=== PATIENT | male | born 1955 | race Caucasian/White ===

== ENCOUNTER 2019-12-31 01:35 | Emergency (ER) | payer OTHER ==
--- NOTE | 2019-12-31 02:36 | ED ---
Abdominal Pain/Male - HPI Summary HPI Summary: 64 year old M arriving via private car complains of constant, upper abdominal pain described as "pushing" that started at 1700 yesterday 12/30/2019. He states the pain radiates down his abdomen. Patient denies nausea/vomiting, fever. Last normal bowel movement hours ago. He states he ate 2 slices of pizza for dinner last night. He has been eating well recently but not hydrating well. Symptoms rated 6/10 at its best and 9/10 at its worst in severity. Symptoms aggravated by nothing. Symptoms alleviated by lying on his left side. Took Tums and Zantac at 2300 yesterday 12/30 with no relief. Patient has never had symptoms. Hx nonischemic cardiomyopathy. Medications reviewed. On Lasix, Entresto, carvadilol , aspirin 81 mg, atorvastatin, vitamin D3. No abdominal surgical hx. He states he has not had ETOH in 3 months. No recreational drug or tobacco use. - History of Current Complaint Chief Complaint: EDAbdPain Stated Complaint: ABD PAIN PER PT Time Seen by Provider: 12/31/19 02:21 Hx Obtained From: Patient Onset/Duration: Lasting Hours - 1700 yesterday 12/30/2019, Still Present Timing: Constant Severity Currently: Severe Pain Intensity: 9 Pain Scale Used: 0-10 Numeric Location: Discrete At: RUQ, Discrete At: LUQ Radiates: Yes Radiates to: Other - lower abdomen Aggravating Factor(s): Nothing Alleviating Factor(s): Other: - lying on left side Associated Signs And Symptoms: Positive: Negative - nausea/vomiting, fever, decreased appetite, Other - dehydration - Allergies/Home Medications Allergies/Adverse Reactions: Allergies Allergy/AdvReac Type Severity Reaction Status Date / Time No Known Allergies Allergy Verified 12/31/19 01:37 Home Medications: Home Medications Aspirin [Ecotrin Low Strength] 81 mg PO DAILY 12/31/19 [History Confirmed ] Atorvastatin* [Lipitor*] 40 mg PO 2100 12/31/19 [History Confirmed 12/31/19] Carvedilol [Coreg] 12.5 mg PO BID 12/31/19 [History Confirmed 12/31/19] Oxycodone HCl 5 mg PO SEE INSTRUCTIONS 12/31/19 [History Confirmed 12/31/19] raNITIdine HCl [Zantac 75] 75 mg PO BID 12/31/19 [History Confirmed 12/31/19] PMH/Surg Hx/FS Hx/Imm Hx Cardiovascular History: Reports: Other Cardiovascular Problems/Disorders - nonischemic cardiomyopathy Sensory History: Denies: Hx Legally Blind Opthamlomology History: Denies: Hx Legally Blind - Surgical History Surgery Procedure, Year, and Place: hip surgery. rotator cuff. ACL Infectious Disease History: No Infectious Disease History: Denies: Traveled Outside the [place] in Last 30 Days - Family History Known Family History: Positive: Other - NEG: Cancer Negative: Cardiac Disease, Hypertension, Diabetes - Social History Alcohol Use: None Alcohol Amount: not since September 2019 Hx Substance Use: No Substance Use Type: Reports: None Review of Systems - ROS Summary Review of Systems Summary: Home Medications Medication Instructions Recorded Confirmed Type Aspirin [Ecotrin Low Strength] 81 mg PO DAILY 12/31/19 12/31/19 History Atorvastatin* [Lipitor*] 40 mg PO 2100 12/31/19 12/31/19 History Carvedilol [Coreg] 12.5 mg PO BID 12/31/19 12/31/19 History Oxycodone HCl 5 mg PO SEE INSTRUCTIONS 12/31/19 12/31/19 History raNITIdine HCl [Zantac 75] 75 mg PO BID 12/31/19 12/31/19 History Negative: Fever Gastrointestinal: Negative - decreased appetite Positive: Abdominal Pain, Other - dehydration. Negative: Vomiting, Nausea All Other Systems Reviewed And Are Negative: Yes Physical Exam - Summary Physical Exam Summary: General: Morbidly obese MALE who is not in any obvious distress. HEENT: Normocephalic, Atraumatic. Eyes: Conjuctiva normal, PERRL. Oropharynx: Clear, mucous membranes moist, (-) exudates. Neck: Soft, FROM, (-) lymphadenopathy, (-) thyromegaly, (-) JVD. Cardiovascular: Normal sinus rhythm, (-) murmur. Lungs: Clear to auscultation bilaterally (-) wheezes, (-) rales, (-) rhonchi. Abdomen: Soft, mild tenderness in LUQ and epigastric areas, non-distended, (-) organomegaly, normal bowel sounds. Back: (-) CVA tenderness Extremities: +1 pitting edema lower extremities Skin: Warm, dry, (-) rash. Neuro: Alert and oriented x3, moves all extremities equally. No ataxia. No gait disturbance. No sensory deficit. Normal strength, normal sensation. Psychiatric: Mood normal, affect normal. Triage Information Reviewed: Yes Vital Signs On Initial Exam: Initial Vitals Temp Pulse Resp BP Pulse Ox 98.0 F 70 18 151/101 98 12/31/19 01:38 12/31/19 01:38 12/31/19 01:38 12/31/19 01:38 12/31/19 01:38 Vital Signs Reviewed: Yes Procedures - Sedation Patient Received Moderate/Deep Sedation with Procedure: No Diagnostics - Vital Signs Vital Signs Temp Pulse Resp BP Pulse Ox 12/31/19 01:38 98.0 F 70 18 151/101 98 - Laboratory Result Diagrams: 12/31/19 02:15 12/31/19 02:15 Lab Statement: Any lab studies that have been ordered have been reviewed, and results considered in the medical decision making process. - CT ABDOMEN/PELVIS CT Interpretation Completed By: Radiologist - IMPRESSION: 1. The gallbladder is distended. No calcified gallstone. Abnormal pericholecystic fluid collection. This is a suggestive of acute cholecystitis. Suggest ultrasound examination to differentiate between calculus and acalculus cholecystitis. No significant distension of the intrahepatic or extrahepatic biliary system. 2. Colonic diverticulosis without evidence of acute diverticulitis. ED physician has reviewed this imaging report. Abdominal Pain Male Course/Dx - Course Course Of Treatment: 64-year-old male presents with abdominal pain. He states he is recently had a left hip replacement. He describes abdominal pain that goes across his entire upper abdomen. Worst in the epigastric area. Describes it as a pressure or pushing. He tried Tums without relief. No fevers. No vomiting. No diarrhea. and physical exam he is a morbidly obese male. He appears in mild discomfort. He has moderate tenderness in the epigastric area. Mild tenderness in the right upper quadrant and left upper quadrant areas. In the ED, patient was given normal saline fluids, Protonix, fentanyl. he had good relief with Tylenol. Workup demonstrates increased AST, ALT, alkaline phosphatase. CT abdomen and pelvis demonstrated distended gallbladder. pericholecystic fluid just above acute cholecystitis. Discussed with hospitalist. Hospitalist deferred admission until ultrasound could be done later this morning. Patient aware of plan. Signed out at change of shift awaiting ultrasound and results. - Diagnoses Provider Diagnoses: Acute cholecystitis - Provider Notifications Discussed Care Of Patient With: Saritha Kuhn Time Discussed With Above Provider: 05:57 Instructed by Provider To: Other - Dr. Kuhn, hospitalist, states that an ultrasound needs to be done before patient can be accepted to hospitalist. Discharge ED - Sign-Out/Discharge Documenting (check all that apply): Sign-Out Patient Signing out patient TO: Cody Delgado - Discharge Plan Condition: Stable Referrals: No Primary Care Phys,NOPCP [Primary Care Provider] - - Attestation Statements Document Initiated by Scribe: Yes Documenting Scribe: Denise Bradshaw Provider For Whom Scribe is Documenting (Include Credential): Emily Magana MD Scribe Attestation: Denise Correa , scribed for Emily Magana MD on 12/31/19 at 0634. Status of Scribe Document: Ready
[2019-12-31] MEDS ORDERED: NS 0.9% 1000 ML** 1,000 ML IV ONE (02:48)
[2019-12-31] MEDS ORDERED: Pantoprazole IV* 40 MG IV ONE (02:49)
[2019-12-31 03:09] LABS: ABS Eosinophils 0.1 10^3/ul (0-0.6); ABS Lymphocytes 0.8 10^3/ul (1.0-4.8); ABS Monocytes 0.4 10^3/ul (0-0.8); ABS Neutrophils 4.2 10^3/ul (1.5-7.7); Eosinophil % 2.5 %; Hematocrit 40 % (42-52); Hemoglobin 13.5 g/dL (14.0-18.0); Lymphocyte % 15.1 %; Mean Corpuscular HGB Conc 34 g/dL (31-36); Mean Corpuscular Hemoglobin 30 pg (27-31); Mean Corpuscular Volume 87 fL (80-94); Mean Platelet Volume 8.7 fL (7.4-10.4); Nucleated Red Blood Cells % 0.1; Platelet Count 170 10^3/uL (150-450); Red Blood Count 4.58 10^6 /uL (4.18-5.48); Red Cell Distribution Width 15 % (10-15); White Blood Count 5.6 10^3/uL (3.5-10.8)
[2019-12-31 03:12] LABS: INR 1.05 (0.82-1.09)
[2019-12-31 03:18] LABS: Albumin 4.2 g/dL (3.2-5.2); Albumin/Globulin Ratio 1.6 (1-3); C Reactive Protein 2.47 mg/L (<8.01); Calcium 9.6 mg/dL (8.6-10.3); EGFR African American 103.5 (>60); EGFR Non-African American 85.5 (>60); Globulin 2.6 g/dL (2-4); Potassium 3.9 mmol/L (3.5-5.0); Total Protein 6.8 g/dL (6.4-8.9)
[2019-12-31] MEDS ORDERED: fentaNYL* 50 MCG/ML 2 ML VIAL (100 MCG VIAL) IV SLOW PU ONE ×2 (04:05→06:50)
[2019-12-31] MEDS ORDERED: Iohexol 300* (CONTRAST) 10 ML SDV IV ONE (04:23)
[2019-12-31 06:37] LABS: Urine Appearance Clear; Urine Bilirubin Negative (Negative); Urine Blood Negative (Negative); Urine Color Yellow; Urine Glucose Negative (Negative); Urine Ketones Trace (Negative); Urine Nitrite Negative (Negative); Urine Protein Negative (Negative); Urine Urobilinogen Negative (Negative)
[2019-12-31 06:46] LABS: Urine Specific Gravity > 1.059 (1.010-1.030)
[2019-12-31] MEDS ORDERED: Piperacillin/Tazobac ADVAN(*) 3.375 GM in NS 0.9% 100 ML* 100 ML IVPB ONE (07:15)
--- NOTE | 2019-12-31 07:30 | ED ---
Progress - Progress Note Progress Note: This patient was signed out from Dr. Magana to Dr. Delgado at shift change at 0700, pending disposition, awaiting Gallbladder US. Gallbladder US reveals per radiologist IMPRESSION: GALLBLADDER SLUDGE AND AT LEAST ONE ECHOGENIC STONE WITHOUT SONOGRAPHIC EVIDENCE OF ACUTE CHOLECYSTITIS OR PATHOLOGIC BILIARY OBSTRUCTION. ED physician has reviewed this radiology report.The patients condition is stable and will be discharged. - Results/Orders Results/Orders: Gallbladder US reveals per radiologist IMPRESSION: GALLBLADDER SLUDGE AND AT LEAST ONE ECHOGENIC STONE WITHOUT SONOGRAPHIC EVIDENCE OF ACUTE CHOLECYSTITIS OR PATHOLOGIC BILIARY OBSTRUCTION. ED physician has reviewed this radiology report. Re-Evaluation - Re-Evaluation First Eval Re-Evaluation Time: 07:18 Comment: resting comfortable in bed, states fentanyl worked for pain, states abd pain began yesterday at 5 pm, across upper abdomen. Visiting from [place]. Pt denies fever, N/V/D. Second Eval Re-Evaluation Time: 08:58 Comment: Still feels pain free, US comes back with no signs of acute cholecystitis, given his symptoms we will discharge Course/Dx - Course Course Of Treatment: This patient was signed out from Dr. Magana to Dr. Delgado at shift change at 0700, pending disposition, awaiting Gallbladder US. Patient had a CT scan last night which showed possible cholecystitis. Upon my reexamination, patient had no tenderness and is overall well-appearing. Patient 's never had fever as well. Patient's lab work is consistent with gallbladder disease. Patient had an ultrasound of his gallbladder which showed sludge, stones, with no evidence of cholecystitis. Based on patient's clinical picture , I do not think patient has cholecystitis. Patient was discharged with Bentyl for pain control and follow-up with his primary care doctor in [place] when he returns. - Diagnoses Provider Diagnoses: Biliary colic, RUQ pain Discharge ED - Sign-Out/Discharge Documenting (check all that apply): Patient Departure - discharge - Discharge Plan Condition: Stable Disposition: HOME Prescriptions: Dicyclomine CAP* [Bentyl CAP*] 10 mg PO TID PRN #[id number] cap PRN Reason: abdominal pain Patient Education Materials: Biliary Colic (ED) Referrals: Care [facility] [Outside] - 3 Days Additional Instructions: Take medication if you start having pain again, come back to ED if you have pain with fever, chills, or vomiting. Follow up with primary care doctor in [place]. - Billing Disposition and Condition Condition: STABLE Disposition: Home - Attestation Statements Document Initiated by Chastity: Yes Documenting Scribe: Nadia Valdez Provider For Whom Chastity is Documenting (Include Credential): Cody Delgado MD Scribe Attestation: Nadia Correa, scribed for Cody Delgado MD on 12/31/19 at 1612. Scribe Documentation Reviewed: Yes Provider Attestation: The documentation as recorded by the Nadia smith accurately reflects the service I personally performed and the decisions made by , Cody Delgado MD Status of Scribe Document: Viewed
[2019-12-31 09:01] VITALS: BP 112/74
== END 2019-12-31 09:43 | disposition home or self-care (01) ==
LOC: ED 01:35
DX: K81.0 Acute cholecystitis (principal); R10.9 Unspecified abdominal pain; E86.0 Dehydration; R10.11 Right upper quadrant pain; Z79.82 Long term (current) use of aspirin
CPT/HCPCS: 36415; 74177; 76705; 80053; 81003; 82150; 83605; 83690; 85025; 85610; 86140; 96361; 96374; 96375; 99284; J2543; J3010; Q9967